=== PATIENT | female | born 1935 | race Caucasian/White ===

== ENCOUNTER → 2016-10-15 | Outpatient (CLI) | payer MEDICARE, OTHER ==
[~2016-10-15] MED LIST: ALL220TA PO; ASPI81CH CHEW; ASPI81TA82 PO; CEPH750C PO; D 10CHW PO; D31000CA PO; DICL75 PO; DOXY100C PO; FISH100020 PO; HYDR-3533 PO; HYDR12.56 PO; HYDR12.57 PO; LACTTAB8 PO; LEVO.1 PO; LISI-363 PO; MULT1TAB84 PO; OCUVTAB4 PO; OMEGCAP29 PO; PANT20 PO
[2016-10-15 13:12] LABS: HEMATOCRIT 43.4 % (35.0-46.0); MEAN CELL VOLUME 92.3 FL (80.0-100.0); MEAN CORPUSCULAR HEMOGLOBIN 30.9 PG (27.0-34.0); MEAN CORPUSCULAR HGB CONC 33.5 % (32.0-36.0); PLATELET COUNT 172 TH/MM3 (150-450); RED CELL DISTRIBUTION WIDTH 13.7 % (11.6-17.2); REVIEW FLAG FINAL
[2016-10-15 13:34] LABS: ALKALINE PHOSPHATASE 65 U/L (45-117); ALT (GPT) 17 U/L (10-53); ANION GAP 5 MEQ/L (5-15); AST (GOT) 16 U/L (15-37); BICARBONATE 32.1 MEQ/L (21.0-32.0); BLOOD UREA NITROGEN 29 MG/DL (7-18); CHLORIDE 105 MEQ/L (98-107); GLOMERULAR FILTRATION RATE 50 ML/MIN (>89); GLUCOSE,FASTING 81 MG/DL (74-99); HDL CHOLESTEROL 58.5 MG/DL (40.0-60.0); LDL CHOLESTEROL 96 MG/DL (0-99); LDL CHOLESTEROL DIRECT 113 MG/DL (0-99); POTASSIUM 4.1 MEQ/L (3.5-5.1); SODIUM (NA) 142 MEQ/L (136-145); TOTAL BILIRUBIN ADULT 1.6 MG/DL (0.2-1.0)
== END ==
LOC: PLAB 08:50
PROVIDERS: ATTEND Internal Medicine
DX: E03.9 Hypothyroidism, unspecified (principal); I10 Essential (primary) hypertension; E78.5 Hyperlipidemia, unspecified
CPT/HCPCS: 36415; 80053; 80061; 83721; 85027

== ENCOUNTER 2017-01-15 06:49 | Inpatient (IN) | payer MEDICARE, OTHER ==
[2017-01-15] VITALS (10 sets, daily range): BP systolic 100–148; BP diastolic 52–96; PULSE 80–120; RESP 16–20; TEMP 98.1–100.1; O2SAT 93–98
[~2017-01-15] VITALS: Ht 162.6 cm; Wt 82.6 kg
[~2017-01-15 06:49] MED LIST changes: -ASPI81CH CHEW; -CEPH750C PO; -D 10CHW PO; -DOXY100C PO; -HYDR12.57 PO; -LACTTAB8 PO; -MULT1TAB84 PO; -OMEGCAP29 PO
[2017-01-15] MEDS ORDERED: SODIUM CHLOR 0.9% 1000 ML INJ 1,000 ML IV ONE ×2 (07:21→10:30)
--- NOTE | 2017-01-15 07:21 | PD ---
HPI Chief Complaint: General Weakness Time Seen by Provider: 07:13 Travel History International Travel<30 days: No Contact w/Intl Traveler<30days: No History of Present Illness HPI The patient's 81 years old. She arrives by private auto from home with her granddaughter. The patient has been in her normal state of health and normal routine for the past several days or so. This morning she woke up at 3 AM feeling very cold. She was unable to get warm despite using blankets and various clothes. She began to shake. She called her granddaughter at that point. Granddaughter reports rigorous on scene and was concerned the patient might start seizing. Both no urinary frequency. The patient denies dysuria. At about same time the patient began vomiting and foamy green emesis. She's had no chest pain or shortness of breath. She denies abdominal pain. She notes a strong family history of coronary artery disease however has none herself. PFSH Past Medical History Autoimmune Disease: Yes (POLUPS) Diminished Hearing: No Hypertension: Yes Respiratory: Yes (NODULES ON LUNGS) Immunizations Current: Yes Thyroid Disease: Yes Tetanus Vaccination: Unknown Influenza Vaccination: Yes Menopausal: Yes Past Surgical History Cholecystectomy: Yes Hysterectomy: Yes Social History Alcohol Use: No Tobacco Use: No Substance Use: No Allergies-Medications (Allergen,Severity, Reaction): Coded Allergies: Shellfish (Verified Allergy, Severe, respirtory distress, 10/09/14) Penicillin (Verified Adverse Reaction, Mild, nausea, 10/09/14) Reported Meds & Prescriptions Reported Meds & Active Scripts Active Reported D 1000 (Cholecalciferol) 1,000 Unit Chew 1,000 PO DAILY Multivitamin Adults (Multiple Vitamins W/ Minerals) 1 Tab 1 Tab PO DAILY [facility] ([facility] 3 Fatty Ijctd-Blndtb-Iofcgwhbvo) 250-2.5-0.5 Mg Cap 1 Cap PO DAILY Synthroid (Levothyroxine Sodium) 100 Mcg Tab 100 Mcg PO DAILY Hydrochlorothiazide Unknown Strength Cap Unknown Dose PO DAILY Aspirin 81 Mg Chew 81 Mg CHEW DAILY Review of Systems Except as stated in HPI: all other systems reviewed are Neg General / Constitutional: Positive: Chills Gastrointestinal: Positive: Nausea, Vomiting, No: Abdominal Pain Genitourinary: Positive: Frequency Physical Exam Narrative GENERAL: 81 yo F, WNWD, pleasant SKIN: Warm and dry. HEAD: Atraumatic. Normocephalic. EYES: Pupils equal and round. No scleral icterus. No injection or drainage. ENT: No nasal bleeding or discharge. Mucous membranes pink and moist. NECK: Trachea midline. No JVD. CARDIOVASCULAR: Tachycardia. Regular rhythm. RESPIRATORY: No accessory muscle use. Clear to auscultation. Breath sounds equal bilaterally. GASTROINTESTINAL: Soft. No focus of tenderness. MUSCULOSKELETAL: Extremities without clubbing, cyanosis, or edema. No obvious deformities. NEUROLOGICAL: Awake and alert. No obvious cranial nerve deficits. Motor grossly within normal limits. Five out of 5 muscle strength in the arms and legs. Normal speech. PSYCHIATRIC: Appropriate mood and affect; insight and judgment normal. Data Data Last Documented VS Vital Signs Date Time Temp Pulse Resp B/P Pulse Ox O2 Delivery O2 Flow Rate FiO2 01/15/17 08:00 82 17 139/72 97 Nasal Cannula 2 01/15/17 06:52 99.6 Vs reviewed Orders Electrocardiogram (01/15/17 ) Complete Blood Count With Diff (01/15/17 07:21) Comprehensive Metabolic Panel (01/15/17 07:21) Lactic Acid Sepsis Protocol (01/15/17 07:21) Magnesium (Mg) (01/15/17 07:21) Ckmb (Isoenzyme) Profile (01/15/17 07:21) Troponin I (01/15/17 07:21) Urinalysis - C+S If Indicated (01/15/17 07:21) Influenzae A/B Antigen (01/15/17 07:21) Blood Culture (01/15/17 07:21) Chest, Single Ap (01/15/17 07:21) Ecg Monitoring (01/15/17 07:21) Iv Access Insert/Monitor (01/15/17 07:21) Cath For Specimen (01/15/17 07:21) Oximetry (01/15/17 07:21) Oxygen Administration (01/15/17 07:21) Ondansetron Inj (Zofran Inj) (01/15/17 07:30) Sodium Chlor 0.9% 1000 Ml Inj (Ns 1000 M (01/15/17 07:21) CKMB (01/15/17 07:48) CKMB% (01/15/17 07:48) Ceftriaxone Inj (Rocephin Inj) (01/15/17 09:00) Azithromycin (Zithromax) (01/15/17 09:00) Admit Order (Ed Use Only) (01/15/17 09:58) Labs Laboratory Tests Test 01/15/17 01/15/17 07:45 07:48 Urine Color YELLOW Urine Turbidity CLEAR Urine pH 6.0 Urine Specific [place] 1.018 Urine Protein TRACE mg/dL Urine Glucose (UA) NEG mg/dL Urine Ketones NEG mg/dL Urine Occult Blood MOD Urine Nitrite NEG Urine Bilirubin NEG Urine Urobilinogen 4.0 MG/DL Urine Leukocyte Esterase NEG Urine RBC 10 /hpf Urine WBC 1 /hpf Urine Squamous Epithelial <1 /hpf Cells Urine Mucus FEW /lpf Microscopic Urinalysis Comment CATH-CULT NOT IND White Blood Count 13.0 TH/MM3 Red Blood Count 4.68 MIL/MM3 Hemoglobin 14.6 GM/DL Hematocrit 43.2 % Mean Corpuscular Volume 92.4 FL Mean Corpuscular Hemoglobin 31.2 PG Mean Corpuscular Hemoglobin 33.8 % Concent Red Cell Distribution Width 13.9 % Platelet Count 172 TH/MM3 Mean Platelet Volume 9.0 FL Neutrophils (%) (Auto) 85.6 % Lymphocytes (%) (Auto) 8.7 % Monocytes (%) (Auto) 4.9 % Eosinophils (%) (Auto) 0.5 % Basophils (%) (Auto) 0.3 % Neutrophils # (Auto) 11.2 TH/MM3 Lymphocytes # (Auto) 1.1 TH/MM3 Monocytes # (Auto) 0.6 TH/MM3 Eosinophils # (Auto) 0.1 TH/MM3 Basophils # (Auto) 0.0 TH/MM3 CBC Comment DIFF FINAL Differential Comment Sodium Level 138 MEQ/L Potassium Level 4.5 MEQ/L Chloride Level 105 MEQ/L Carbon Dioxide Level 22.9 MEQ/L Anion Gap 10 MEQ/L Blood Urea Nitrogen 26 MG/DL Creatinine 1.11 MG/DL Estimat Glomerular Filtration 47 ML/MIN Rate Random Glucose 112 MG/DL Lactic Acid Level 2.3 mmol/L Calcium Level 9.1 MG/DL Magnesium Level 1.6 MG/DL Total Bilirubin 2.0 MG/DL Aspartate Amino Transf 42 U/L (AST/SGOT) Alanine Aminotransferase 25 U/L (ALT/SGPT) Alkaline Phosphatase 69 U/L Total Creatine Kinase 107 U/L Creatine Kinase MB 1.1 NG/ML Troponin I LESS THAN 0.02 NG/ML Total Protein 6.6 GM/DL Albumin 3.6 GM/DL MDM Medical Decision Making Medical Screen Exam Complete: Yes Emergency Medical Condition: Yes Medical Record Reviewed: Yes Differential Diagnosis Constipation, Gastritis, Acute Cholecystitis, Biliary Colic, Pancreatitis, MENDEZ , Hepatitis, Bowel Obstruction, Cystitis, Mesenteric Ischemia, AAA, Appendicitis , Renal Stone/Hydronephrosis, GERD, perforated viscous Narrative Course CBC & BMP Diagram 01/15/17 07:48 Lactic acid 2.3 Total bilirubin 2.0 AST 42 Troponin 0.02 EKG: Sinus tachycardia rate of 118 normal axis and intervals Patient arrives after rigors this morning with tachycardia. She happens to meeting the sepsis criteria numerically however the exact etiology is unclear at this point. Her abdomen is soft and nontender. Urinalysis is not consistent with UTI. Patient may potentially have pneumonia. Influenza assay could be a false-negative. Patient will be admitted for further workup and for antibiotics. Discussed with Dr. Mathis. Sepsis Criteria SIRS Criteria (2 or more): Heart rate over 90, WBC > 52769, < 4000 or > 10% bands Sepsis Criteria (SIRS+source): Infect source susp/known Diagnosis Primary Impression: Sepsis Qualified Code: A41.9 - Sepsis, due to unspecified organism Admitting Information Admitting Physician Requests: Admit Maurilio Bateman MD Jan 15, 2017 07:21
[2017-01-15] MEDS ORDERED: ONDANSETRON HCL 4 MG/2 ML VIAL IV ONE (07:30)
--- NOTE | 2017-01-15 07:59 | RADRPT ---
EXAM DATE/TIME: 01/15/2017 07:30 [facility] COMPARISON: CT LUMBAR SPINE W/O CONTRAST, September 27, 2014, 17:33. SPINE LUMBAR LTD (AP & LAT), February 28, 2015, 1 5:55. CHEST SINGLE AP, October 09, 2014, 13:19. INDICATIONS : Fever, short of breath, nausea, vomiting, convulsing, low blood pressure MEDICAL HISTORY : lung nodules SURGICAL HISTORY : None. ENCOUNTER: Initial ACUITY: 1 day PAIN SCORE: 0/10 LOCATION: Bilateral chest FINDINGS: Single AP view of the chest. The lungs are clear. Cardiomediastinal silhouette within normal limits. No evidence of pleural effusion or pneumothorax. Likely hiatal hernia noted. CONCLUSION: No acute cardiopulmonary disease identified. Venancio Tate MD on January 15, 2017 at 7:56 Board Certified Radiologist. This report was verified electronically.
[2017-01-15 08:03] LABS: AUTOMATED NEUTROPHIL # 11.2 TH/MM3 (1.8-7.7); BASOPHIL % 0.3 % (0.0-2.0); EOSINOPHIL # 0.1 TH/MM3 (0-0.4); EOSINOPHIL % 0.5 % (0.0-4.0); HEMATOCRIT 43.2 % (35.0-46.0); HEMO FLAGS DIFF FINAL; LYMPH % 8.7 % (9.0-44.0); LYMPHOCYTE # 1.1 TH/MM3 (1.0-4.8); MEAN CELL VOLUME 92.4 FL (80.0-100.0); MEAN CORPUSCULAR HEMOGLOBIN 31.2 PG (27.0-34.0); MEAN CORPUSCULAR HGB CONC 33.8 % (32.0-36.0); MONO % 4.9 % (0.0-8.0); NEUT % 85.6 % (16.0-70.0); PLATELET COUNT 172 TH/MM3 (150-450); RED BLOOD COUNT 4.68 MIL/MM3 (4.00-5.30); RED CELL DISTRIBUTION WIDTH 13.9 % (11.6-17.2)
[2017-01-15 08:09] LABS: BLOOD, URINE MOD (NEG); GLUCOSE,URINE NEG (NEG); KETONE, URINE NEG (NEG); MUCUS URINE FEW /lpf (OCC); NITRITE,URINE NEG (NEG); SQUAMOUS EPITHELIAL CELL URINE <1 /hpf (0-5); URINE COLOR YELLOW (YELLW/STRAW)
[2017-01-15 08:10] LABS: COMMENT (UR) CATH-CULT NOT IND; CULTURE IF INDICATED CATH CULTURE NOT IND
[2017-01-15 08:35] LABS: ALKALINE PHOSPHATASE 69 U/L (45-117); ALT (GPT) 25 U/L (10-53); ANION GAP 10 MEQ/L (5-15); AST (GOT) 42 U/L (15-37); BICARBONATE 22.9 MEQ/L (21.0-32.0); BLOOD UREA NITROGEN 26 MG/DL (7-18); CHLORIDE 105 MEQ/L (98-107); CREATINE KINASE 107 U/L (26-192); GLOMERULAR FILTRATION RATE 47 ML/MIN (>89); MAGNESIUM 1.6 MG/DL (1.5-2.5); POTASSIUM 4.5 MEQ/L (3.5-5.1); SODIUM (NA) 138 MEQ/L (136-145)
[2017-01-15 08:48] LABS: CKMB 1.1 NG/ML (0.5-3.6)
[2017-01-15] MEDS ORDERED: AZITHROMYCIN 250 MG TAB PO ONE (09:00)
[2017-01-15] MEDS ORDERED: cefTRIAXone INJ 1,000 MG in SODIUM CHLORIDE 0.9% INJ 100 ML IV ONE (09:00)
[2017-01-15 09:56] LABS: LACTIC ACID GHOST NOT REPORTABLE
[2017-01-15] MEDS ORDERED: ASPI81CH CHEW (10:08)
[2017-01-15] MEDS ORDERED: LEVO.1 PO (10:08)
[2017-01-15] MEDS ORDERED: MULT1TAB84 PO (10:08)
[2017-01-15] MEDS ORDERED: D 10CHW PO (10:08)
[2017-01-15] MEDS ORDERED: OMEGCAP29 PO (10:08)
[2017-01-15] MEDS ORDERED: HYDR12.57 PO (10:08)
--- NOTE | 2017-01-15 10:58 | RADRPT ---
EXAM DATE/TIME: 01/15/2017 10:56 [facility] COMPARISON: CHEST SINGLE AP, January 15, 2017, 7:30. INDICATIONS : Fever, short of breath, evaluate sepsis and possible pneumonia MEDICAL HISTORY : lung nodules SURGICAL HISTORY : Kyphoplasty. ENCOUNTER: Subsequent ACUITY: 1 day PAIN SCORE: 0/10 LOCATION: Bilateral chest FINDINGS: The heart is normal in size. There mild chronic appearing interstitial changes. The visualized bony s tructures demonstrate degenerative change but are otherwise intact. CONCLUSION: 1. Cardiomegaly with chronic interstitial changes. Stable compared to previous. Maurilio Painter MD on January 15, 2017 at 10:56 Board Certified Radiologist. This report was verified electronically.
[2017-01-15] MEDS ORDERED: SODIUM CHLORIDE 0.9% FLUSH 10 ML FLUSH IV FLUSH PRN (12:15)
[2017-01-15] MEDS ORDERED: ACETAMINOPHEN 325 MG TAB PO PRN (12:15)
[2017-01-15] MEDS: SODIUM CHLOR 0.45% 1000 ML INJ 1,000 ML IV SCH (12:38)
[2017-01-15] MEDS: HEPARIN SODIUM - SQ 10,000 UNITS/ML VIAL SQ SCH (14:38)
--- NOTE | 2017-01-15 18:58 | HHI.HP ---
cc: Ganga Wagner MD HPI Service [facility] Primary Care Physician Ganga Wagner MD Admission Diagnosis Sepsis (Poss PNA) Diagnoses: Chief Complaint: " I felt cold", chills Travel History International Travel<30 Days: No Contact w/Intl Traveler <30 Da: No Traveled to Known Affected Are: No Sepsis Criteria SIRS Criteria (2 or more): Heart rate over 90, WBC > 45532, < 4000 or > 10% bands Sepsis Criteria (SIRS+source): Infect source susp/known Severe Sepsis (+one): Organ Dysfunction Criteria Outcome: Meets sepsis criteria History of Present Illness SSN 81-year-old female with past medical history of hypertension, hypothyroidism and arthritis who presents to [facility] complaining of not feeling well. The patient states that today she will Feel cold cut up from the bed and tried to cover herself with extra clothes and blankets however she then started shaking and having chills. The patient states that she was waiting for her granddaughter to pick her up who is a nurse for the hospital. The patient otherwise denies any cough denies any fevers, denies any chest pain , denies dysuria. She states that approximately 2 days ago she bumped her right leg on the corner of car door sustaining a small injury, however denies right leg pain. The patient states that she had some nausea and vomiting 1 when she got to the hospital. At the moment of interview the patient is asymptomatic, denies chest pain short of breath, cough. Review of Systems As per history of present illness, other systems reviewed by me and negative Past Family Social History Past Medical History 1. Hypertension. 2. Arthritis. 3. Hypothyroidism Past Surgical History 1. Hip surgery after being attacked by a dog. 2. Spine surgery for separate events of vertebral fractures in 2011 and 2014. 3. Total abdominal hysterectomy with bilateral salpingo-oophorectomy. 4. Gangrenous cyst removal on the right arm. 5. Cholecystectomy. 6. Left foot surgery for hammertoes. Reported Medications Reported Meds & Active Scripts Active Reported D 1000 (Cholecalciferol) 1,000 Unit Chew 1,000 PO DAILY Multivitamin Adults (Multiple Vitamins W/ Minerals) 1 Tab 1 Tab PO DAILY [facility] ([place] 3 Fatty Wsonf-Jiilte-Fsdjsvesfn) 250-2.5-0.5 Mg Cap 1 Cap PO DAILY Synthroid (Levothyroxine Sodium) 100 Mcg Tab 100 Mcg PO DAILY Hydrochlorothiazide Unknown Strength Cap Unknown Dose PO DAILY Aspirin 81 Mg Chew 81 Mg CHEW DAILY Allergies: Coded Allergies: Shellfish (Verified Allergy, Severe, respirtory distress, 10/09/14) Penicillin (Verified Adverse Reaction, Mild, nausea, 10/09/14) Active Ordered Medications Current Medications Medications (Trade) Dose Ordered Sig/Gladys Route Start Time Stop Time Status Last Admin (10/12 NS 1000 ml Inj) 1,000 ml @ 75 mls/hr [id number] IV 01/15/17 12:12 01/15/17 12:38 (NS Flush) 2 ml UNSCH PRN IV FLUSH 01/15/17 12:15 (NS Flush) 2 ml BID IV FLUSH 01/15/17 21:00 (Tylenol) 650 mg Q4H PRN PO 01/15/17 12:15 Heparin Sodium (Porcine) 5000 units 5,000 units Q12H SQ 01/15/17 13:00 01/15/17 14:38 (Rocephin Inj/NS Inj) 100 ml @ 200 mls/hr Q24H IV 01/16/17 09:00 (Zithromax) 500 mg DAILY PO 01/16/17 09:00 Family History Patient has extensive family history of aortic aneurysm on her father and her sister. The patient's father of bone cancer and committed suicide at the end of this. Patient's brother from bowel cancer. Patient has a daughter who is and at age 37, heart attack. Patient's oldest son from sudden at age 60. Social History Patient denies drinking alcohol. Denies ever smoking. Denies illicit drug use. The patient is and 4 times. The patient lives by herself. Physical Exam Vital Signs Vital Signs Date Time Temp Pulse Resp B/P Pulse Ox O2 Delivery O2 Flow Rate FiO2 01/15/17 16:00 99.4 85 18 109/52 96 01/15/17 14:00 98.1 95 18 121/75 95 01/15/17 11:00 98 18 108/70 97 Room Air 01/15/17 10:00 96 18 100/59 98 Room Air 01/15/17 09:00 98 16 115/74 98 Room Air 01/15/17 08:00 82 17 139/72 97 Nasal Cannula 2 01/15/17 07:33 94 Nasal Cannula 2 01/15/17 07:33 18 93 Room Air 01/15/17 07:12 119 16 93 Room Air 01/15/17 07:09 115 18 130/82 94 Room Air 01/15/17 06:52 99.6 120 16 148/96 95 Room Air Physical Exam GENERAL: This is a well-nourished, well-developed patient, in no apparent distress. SKIN: No rashes, ecchymoses or lesions. Cool and dry. HEAD: Atraumatic. Normocephalic. No temporal or scalp tenderness. EYES: Pupils equal round and reactive. Extraocular motions intact. No scleral icterus. No injection or drainage. ENT: Nose without bleeding, purulent drainage or septal hematoma. Throat without erythema, tonsillar hypertrophy or exudate. Uvula midline. Airway patent. NECK: Trachea midline. No JVD or lymphadenopathy. Supple, nontender, no meningeal signs. CARDIOVASCULAR: Regular rate and rhythm without murmurs, gallops, or rubs. RESPIRATORY: Clear to auscultation. Breath sounds equal bilaterally. No wheezes , rales, or rhonchi. GASTROINTESTINAL: Abdomen soft, non-tender, nondistended. No hepato-splenomegaly , or palpable masses. No guarding. MUSCULOSKELETAL: Extremities without clubbing, cyanosis, or edema. No joint tenderness, effusion. . No calf tenderness. Negative Homans sign bilaterally. Right lower extremity shows a skin tear which seems to be healing with surrounding erythema and warmth. Also Right lower extremity seems to be swollen in comparison to the right extremity NEUROLOGICAL: Awake and alert. Cranial nerves II through XII intact. Motor and sensory grossly within normal limits. Five out of 5 muscle strength in all muscle groups. Normal speech. Laboratory Laboratory Tests Test 01/15/17 01/15/17 01/15/17 07:45 07:48 10:15 Urine Color YELLOW Urine Turbidity CLEAR Urine pH 6.0 Urine Specific [place] 1.018 Urine Protein TRACE Urine Glucose (UA) NEG Urine Ketones NEG Urine Occult Blood MOD Urine Nitrite NEG Urine Bilirubin NEG Urine Urobilinogen 4.0 Urine Leukocyte Esterase NEG Urine RBC 10 Urine WBC 1 Urine Squamous Epithelial <1 Cells Urine Mucus FEW Microscopic Urinalysis Comment CATH-CULT NOT IND White Blood Count 13.0 Red Blood Count 4.68 Hemoglobin 14.6 Hematocrit 43.2 Mean Corpuscular Volume 92.4 Mean Corpuscular Hemoglobin 31.2 Mean Corpuscular Hemoglobin 33.8 Concent Red Cell Distribution Width 13.9 Platelet Count 172 Mean Platelet Volume 9.0 Neutrophils (%) (Auto) 85.6 Lymphocytes (%) (Auto) 8.7 Monocytes (%) (Auto) 4.9 Eosinophils (%) (Auto) 0.5 Basophils (%) (Auto) 0.3 Neutrophils # (Auto) 11.2 Lymphocytes # (Auto) 1.1 Monocytes # (Auto) 0.6 Eosinophils # (Auto) 0.1 Basophils # (Auto) 0.0 CBC Comment DIFF FINAL Differential Comment Sodium Level 138 Potassium Level 4.5 Chloride Level 105 Carbon Dioxide Level 22.9 Anion Gap 10 Blood Urea Nitrogen 26 Creatinine 1.11 Estimat Glomerular Filtration 47 Rate Random Glucose 112 Lactic Acid Level 2.3 0.9 Calcium Level 9.1 Magnesium Level 1.6 Total Bilirubin 2.0 Aspartate Amino Transf 42 (AST/SGOT) Alanine Aminotransferase 25 (ALT/SGPT) Alkaline Phosphatase 69 Total Creatine Kinase 107 Creatine Kinase MB 1.1 Troponin I LESS THAN 0.02 Total Protein 6.6 Albumin 3.6 Date/Time Procedure Status Source Growth 01/15/17 07:50 Aerobic Blood Culture Received Blood Peripheral Pending 01/15/17 07:50 Anaerobic Blood Culture Received Blood Peripheral Pending 01/15/17 07:45 Influenza Types A,B Antigen (BRO) - Final Complete Nasal Aspirate NEGATIVE FOR FLU A AND B ANTIGEN.... Result Diagram: 01/15/1748 01/15/17747 Imaging Last Impressions Chest X-Ray 01/15/17720 Signed Impressions: Service Date/Time: Sunday, January 15, 2017 07:30 - CONCLUSION: No acute cardiopulmonary disease identified. Venancio Tate MD Reviewed by me Septic Shock Reassessment Heart: Regular rate and rhythm Lungs: Clear Skin: Warm Peripheral Pulses: Bounding Right Radial Bounding Left Radial Bounding Right Dorsalis Pedis Bounding Left Dorsalis Pedis Capillary Refill: <2 seconds Assessment and Plan Problem List: (1) Sepsis ICD Code: A41.9 Status: Acute Plan: Admit the patient to the medical floor. Continue IV Rocephin Continue IV fluids Continue to monitor vital signs (2) Cellulitis of right lower extremity ICD Code: L03.115 Status: Acute Plan: As above. Check venous Doppler of right lower extremity to r/o associated DVT. (3) Hypothyroidism ICD Code: E03.9 Status: Chronic Plan: Continue levothyroxine. Check TSH. (4) HTN (hypertension) ICD Code: I10 Status: Acute Plan: I will hold lisinopril and hydrochlorothiazide given acute kidney injury and decreased GFR. We'll place on clonidine as needed. (5) HANNAH (acute kidney injury) ICD Code: N17.9 Status: Acute Plan: Likely prerenal azotemia from sepsis and dehydration. Assessment and Plan GI prophylaxis: PPI. DVT prophylaxis: SCDs, heparin subcutaneously. Consult physical therapy for evaluation. Discussed Condition With Patient, patient's daughter, ED physician Physician Certification 2 Midnight Certification Type: Admission for Inpatient Services Order for Inpatient Services The services are ordered in accordance with Medicare regulations or non- Medicare payer requirements, as applicable. In the case of services not specified as inpatient-only, they are appropriately provided as inpatient services in accordance with the 2-midnight benchmark. Estimated LOS (days): 3 days is the estimated time the patient will need to remain in the hospital, assuming treatment plan goals are met and no additional complications. Post-Hospital Plan: Not yet determined Problem Qualifiers (1) Sepsis: Qualified Code: A41.9 - Sepsis, due to unspecified organism (2) HTN (hypertension): Qualified Code: I10 - Essential hypertension Christopher Ervin MD Jan 15, 2017 18:58
[2017-01-15] MEDS: SODIUM CHLORIDE 0.9% FLUSH 10 ML FLUSH IV FLUSH SCH (21:00)
--- NOTE | 2017-01-15 22:10 | EKG ---
Date Performed: 01/15/2017 Time Performed: 07:16:44 PTAGE: 81 years EKG: SINUS TACHYCARDIA POSSIBLE ANTERIOR MYOCARDIAL INFARCTION Prolonged corrected QT interval. ABNORMAL RHYTHM ECG PREVIOUS TRACING : 10/09/2014 12.46 DOCTOR: Malachi Monge Interpretating Date/Time 01/15/2017 22:08:41
[2017-01-16] VITALS (8 sets, daily range): BP systolic 104–161; BP diastolic 61–84; PULSE 40–77; RESP 18–20; TEMP 98.1–98.7; O2SAT 66–98
[2017-01-16] MEDS: HEPARIN SODIUM - SQ 10,000 UNITS/ML VIAL SQ SCH ×2 (00:47→12:34)
[2017-01-16] MEDS: SODIUM CHLOR 0.45% 1000 ML INJ 1,000 ML IV SCH ×3 (01:32→23:25)
[2017-01-16 08:09] LABS: AUTOMATED NEUTROPHIL # 9.7 TH/MM3 (1.8-7.7); BASOPHIL % 0.3 % (0.0-2.0); EOSINOPHIL % 0.1 % (0.0-4.0); HEMATOCRIT 37.7 % (35.0-46.0); HEMO FLAGS DIFF FINAL; LYMPH % 12.7 % (9.0-44.0); LYMPHOCYTE # 1.5 TH/MM3 (1.0-4.8); MEAN CELL VOLUME 92.5 FL (80.0-100.0); MEAN CORPUSCULAR HEMOGLOBIN 30.5 PG (27.0-34.0); MONO % 6.6 % (0.0-8.0); NEUT % 80.3 % (16.0-70.0); PLATELET COUNT 143 TH/MM3 (150-450); RED BLOOD COUNT 4.08 MIL/MM3 (4.00-5.30); RED CELL DISTRIBUTION WIDTH 14.3 % (11.6-17.2); WHITE BLOOD COUNT 12.1 TH/MM3 (4.0-11.0)
[2017-01-16 08:37] LABS: ALKALINE PHOSPHATASE 59 U/L (45-117); ALT (GPT) 33 U/L (10-53); ANION GAP 8 MEQ/L (5-15); AST (GOT) 30 U/L (15-37); BICARBONATE 26.6 MEQ/L (21.0-32.0); BLOOD UREA NITROGEN 22 MG/DL (7-18); CHLORIDE 106 MEQ/L (98-107); GLOMERULAR FILTRATION RATE 46 ML/MIN (>89); POTASSIUM 3.7 MEQ/L (3.5-5.1); SODIUM (NA) 141 MEQ/L (136-145); TOTAL BILIRUBIN ADULT 1.9 MG/DL (0.2-1.0)
[2017-01-16] MEDS: SODIUM CHLORIDE 0.9% FLUSH 10 ML FLUSH IV FLUSH SCH ×2 (08:51→21:00)
[2017-01-16] MEDS ORDERED: AZITHROMYCIN 250 MG TAB PO SCH (09:00)
[2017-01-16] MEDS ORDERED: cefTRIAXone INJ 1,000 MG in SODIUM CHLORIDE 0.9% INJ 100 ML IV SCH (09:00)
[2017-01-16] MEDS ORDERED: Vancomycin Consult Pharmacy 1 EA OTHER SCH (09:15)
[2017-01-16] MEDS ORDERED: VANCOMYCIN INJ 1,000 MG in SODIUM CHLOR 0.9% 250 ML INJ 250 ML IV SCH (09:15)
[2017-01-16 12:09] LABS: INDIRECT BILIRUBIN 1.1 MG/DL (0.0-0.8); TOTAL BILIRUBIN ADULT 1.4 MG/DL (0.2-1.0)
[2017-01-16] MEDS: VANCOMYCIN 1,000 MG/NS 250 ML IV SCH ×2 (12:34)
--- NOTE | 2017-01-16 15:22 | RADRPT ---
EXAM DATE/TIME: 01/16/2017 14:31 [facility] COMPARISON: No previous studies available for comparison. INDICATIONS : Right leg pain and redness. MEDICAL HISTORY : Hypertension. Thyroid disease. Skin cancer. SURGICAL HISTORY : Cholecystectomy. Hysterectomy. Right hip surgery. ENCOUNTER: Initial ACUITY: 1 day PAIN SCORE: 0/10 LOCATION: Right leg. TECHNIQUE: Venous ultrasound of the leg was performed from the inguinal ligament to the proximal calf. Real-rosalba e, color Doppler and spectral tracing, compression and augmentation techniques were used. FINDINGS: There is normal compressibility of the deep venous system from the inguinal region to the proximal ca lf. No echogenic clot is seen in the lumen of the common femoral, femoral, popliteal, and posterior tibial veins. There is a normal response of the venous system to proximal and distal augmentation an d respiration. CONCLUSION: No evidence of DVT. Jesús Constantino MD on January 16, 2017 at 15:20 Board Certified Radiologist. This report was verified electronically.
--- NOTE | 2017-01-16 17:08 | HHI.PR ---
Subjective Remarks Deferred entry, patient seen earlier at 11:40 AM. WBC trending down. Creatinine trending up Patient denies fevers or chills, states she feels better, denies right lower extremity pain. Patient had a low-grade fever with a MAXIMUM TEMPERATURE of 100.1. Bilirubin noted to be elevated. Objective Vitals Vital Signs Date Time Temp Pulse Resp B/P Pulse Ox O2 Delivery O2 Flow Rate FiO2 01/16/17 12:08 98.3 65 18 130/74 95 01/16/17 08:06 98.7 68 18 114/68 93 01/16/17 08:03 68 01/16/17 07:40 96 21 01/16/17 04:00 98.2 40 20 126/66 96 01/16/17 00:00 98.1 77 20 104/61 92 01/15/17 20:00 80 01/15/17 20:00 100.1 82 20 116/62 98 I/O 01/15/17 01/15/17 01/15/17 01/16/17 01/16/17 01/16/17 07:00 15:00 23:00 07:00 15:00 23:00 Intake Total 1003 ml 566 ml Balance 1003 ml 566 ml Intake Oral 360 ml 240 ml IV Total 643 ml 326 ml # Voids 2 2 2 Result Diagram: 01/16/17 0634 01/16/17 0634 Imaging Last Impressions Lower Extremity Ultrasound 01/16/17 0000 Signed Impressions: Service Date/Time: Monday, January 16, 2017 14:31 - CONCLUSION: No evidence of DVT. Jesús Constantino MD Chest X-Ray 01/15/17 0721 Signed Impressions: Service Date/Time: Sunday, January 15, 2017 07:30 - CONCLUSION: No acute cardiopulmonary disease identified. Venancio Tate MD Objective Remarks GENERAL: This is a well-nourished, well-developed patient, in no apparent distress. SKIN: No rashes, ecchymoses or lesions. Cool and dry. HEAD: Atraumatic. Normocephalic. No temporal or scalp tenderness. EYES: Pupils equal round and reactive. Extraocular motions intact. No scleral icterus. No injection or drainage. ENT: Nose without bleeding, purulent drainage or septal hematoma. Throat without erythema, tonsillar hypertrophy or exudate. Uvula midline. Airway patent. NECK: Trachea midline. No JVD or lymphadenopathy. Supple, nontender, no meningeal signs. CARDIOVASCULAR: Regular rate and rhythm without murmurs, gallops, or rubs. RESPIRATORY: Clear to auscultation. Breath sounds equal bilaterally. No wheezes , rales, or rhonchi. GASTROINTESTINAL: Abdomen soft, non-tender, nondistended. No hepato-splenomegaly , or palpable masses. No guarding. MUSCULOSKELETAL: Extremities without clubbing, cyanosis, or edema. No joint tenderness, effusion. . No calf tenderness. Negative Homans sign bilaterally. Right lower extremity shows a skin tear which seems to be healing with surrounding erythema and warmth. Also Right lower extremity seems to be swollen in comparison to the right extremity NEUROLOGICAL: Awake and alert. Cranial nerves II through XII intact. Motor and sensory grossly within normal limits. Five out of 5 muscle strength in all muscle groups. Normal speech. Medications and IVs Current Medications Medications (Trade) Dose Ordered Sig/Gladys Route Start Time Stop Time Status Last Admin (10/12 NS 1000 ml Inj) 1,000 ml @ 100 mls/hr Q10H IV 01/15/17 12:12 01/16/17 05:49 (NS Flush) 2 ml UNSCH PRN IV FLUSH 01/15/17 12:15 (NS Flush) 2 ml BID IV FLUSH 01/15/17 21:00 01/16/17 08:51 (Tylenol) 650 mg Q4H PRN PO 01/15/17 12:15 Heparin Sodium (Porcine) 5000 units 5,000 units Q12H SQ 01/15/17 13:00 01/16/17 12:34 Cefazolin Sodium 1000 mg/Sodium Chloride 100 ml @ 200 mls/hr Q8H IV 01/16/17 11:00 01/16/17 12:33 Pharmacy Profile Note 0 ml @ 0 mls/hr UNSCH OTHER 01/16/17 09:15 (Vancomycin Inj/ NS 250 ml Inj) 250 ml @ 250 mls/hr Q24H IV 01/16/17 12:00 01/16/17 12:34 Miscellaneous Information SPECIFIC LAB TO BE ENMA... ONCE ONCE .XX 01/19/17 11:45 01/19/17 11:46 Urinary Catheter: No Vascular Central Line Catheter: No A/P Problem List: (1) Sepsis ICD Code: A41.9 Status: Acute Plan: Patient was admitted to the medical floor. DC Rocephin, start cephalexin and IV vancomycin Continue IV fluids Continue to monitor vital signs Blood cultures negative 1. (2) Cellulitis of right lower extremity ICD Code: L03.115 Status: Acute Plan: As above. Lower extremity Doppler negative. Cellulitis seems to be improving, as erythema has improved. (3) Hypothyroidism ICD Code: E03.9 Status: Chronic Plan: Continue levothyroxine. Check TSH. (4) HTN (hypertension) ICD Code: I10 Status: Acute Plan: I will hold lisinopril and hydrochlorothiazide given acute kidney injury and decreased GFR. We'll place on clonidine as needed. 01/16 BP stable. Continue to hold lisinopril and hydrochlorothiazide. (5) HANNAH (acute kidney injury) ICD Code: N17.9 Status: Acute Plan: Likely prerenal azotemia from sepsis and dehydration. Creatinine stable at 1.1. Continue IV fluids. Check renal ultrasound. (6) Elevated lactic acid level ICD Code: R79.89 Status: Resolved Plan: Due to sepsis secondary to cellulitis. Lactic acid on admission 2.3, down to 0.9 after IV fluid administration. (7) Elevated bilirubin ICD Code: R17 Status: Acute Plan: Slated elevation of bilirubin. Total bilirubin 2.0, down to 1.9, down to 1.4. Direct bilirubin 0.3, indirect bilirubin 1.1. Likely secondary to Gilbert's syndrome since the patient states that her bilirubin gets elevated under stress. Problem Qualifiers (1) Sepsis: Qualified Code: A41.9 - Sepsis, due to unspecified organism (2) HTN (hypertension): Qualified Code: I10 - Essential hypertension Christopher Ervin MD Jan 16, 2017 17:08
--- NOTE | 2017-01-16 21:11 | RADRPT ---
EXAM DATE/TIME: 01/16/2017 17:26 [facility] COMPARISON: No previous studies available for comparison. INDICATIONS : Increased lab values. MEDICAL HISTORY : Hypertension. Thyroid disease. Skin cancer. SURGICAL HISTORY : Cholecystectomy. Hysterectomy. Right hip surgery. ENCOUNTER: Initial ACUITY: 1 day PAIN SCORE: 0/10 LOCATION: Bilateral abdomen. MEASUREMENTS: LIVER: 15.5 cm length COMMON DUCT: 8 mm RIGHT KIDNEY: 9.8 x 4.9 x 4.3 cm LEFT KIDNEY: 9.2 x 5.1 x 5.2 cm SPLEEN: 11.0 cm length AORTA: 2.5cm maximal FINDINGS: LIVER: Normal echotexture without focal lesion or ductal dilatation. The portal system is patent. There is no ascites. COMMON DUCT: No intraluminal mass or stone visualized. GALLBLADDER: Surgically removed. PANCREAS: The visualized portions are within normal limits. RIGHT KIDNEY: No hydronephrosis, stone or mass. There is a cyst along the lower pole measuring 2.8 cm. LEFT KIDNEY: No hydronephrosis, stone or mass. There is a cyst along the lower pulmonary 1.4 cm. SPLEEN: No focal lesion. AORTA: Non aneurysmal. IVC: Within normal limits. CONCLUSION: 1. Status post cholecystectomy. No definite biliary tract obstruction 2. Bilateral benign-appearing renal cysts. Jesús Constantino MD on January 16, 2017 at 21:08 Board Certified Radiologist. This report was verified electronically.
[2017-01-17] VITALS: BP 147/88; PULSE 68; RESP 20; TEMP 98.7; O2SAT 97
[2017-01-17] MEDS: HEPARIN SODIUM - SQ 10,000 UNITS/ML VIAL SQ SCH ×2 (01:00→11:22)
[2017-01-17 04:00] VITALS: BP 154/72; PULSE 68; RESP 20; TEMP 98; O2SAT 98
[2017-01-17 07:36] LABS: AUTOMATED NEUTROPHIL # 4.5 TH/MM3 (1.8-7.7); BASOPHIL % 0.5 % (0.0-2.0); EOSINOPHIL # 0.1 TH/MM3 (0-0.4); EOSINOPHIL % 1.5 % (0.0-4.0); HEMATOCRIT 33.7 % (35.0-46.0); HEMO FLAGS DIFF FINAL; LYMPH % 21.9 % (9.0-44.0); LYMPHOCYTE # 1.5 TH/MM3 (1.0-4.8); MEAN CELL VOLUME 91.3 FL (80.0-100.0); MEAN CORPUSCULAR HEMOGLOBIN 31.6 PG (27.0-34.0); MEAN CORPUSCULAR HGB CONC 34.6 % (32.0-36.0); MONO % 11.3 % (0.0-8.0); NEUT % 64.8 % (16.0-70.0); PLATELET COUNT 138 TH/MM3 (150-450); RED BLOOD COUNT 3.69 MIL/MM3 (4.00-5.30); RED CELL DISTRIBUTION WIDTH 14.4 % (11.6-17.2)
[2017-01-17 07:55] LABS: BICARBONATE 25.7 MEQ/L (21.0-32.0); INDIRECT BILIRUBIN 0.8 MG/DL (0.0-0.8); MAGNESIUM 1.7 MG/DL (1.5-2.5); POTASSIUM 3.6 MEQ/L (3.5-5.1)
[2017-01-17 07:59] VITALS: O2SAT 99
[2017-01-17 08:00] VITALS: BP 176/89; PULSE 74; RESP 18; TEMP 98.1; O2SAT 97
[2017-01-17] MEDS: SODIUM CHLORIDE 0.9% FLUSH 10 ML FLUSH IV FLUSH SCH (08:10)
[2017-01-17] MEDS: SODIUM CHLOR 0.45% 1000 ML INJ 1,000 ML IV SCH (08:11)
[2017-01-17] MEDS ORDERED: cloNIDine HCL 0.1 MG TAB PO ONE (08:30)
[2017-01-17] MEDS ORDERED: HYDROCHLOROTHIAZIDE 25 MG TAB PO SCH (09:00)
[2017-01-17] MEDS: VANCOMYCIN 1,000 MG/NS 250 ML IV SCH ×2 (11:22)
[2017-01-17 12:00] VITALS: BP 113/67; PULSE 73; RESP 18; TEMP 98.1; O2SAT 96
[2017-01-17] MEDS ORDERED: LACTTAB8 PO (12:21)
[2017-01-17] MEDS ORDERED: DOXY100C PO (12:21)
[2017-01-17] MEDS ORDERED: CEPH750C PO (12:21)
--- NOTE | 2017-01-17 12:22 | HHI.DCPOC ---
Discharge Care Plan Diagnosis: (1) Sepsis (2) HTN (hypertension) (3) HANNAH (acute kidney injury) (4) Cellulitis of right lower extremity (5) Elevated bilirubin Goals to Promote Your Health * To prevent worsening of your condition and complications * To maintain your health at the optimal level Directions to Meet Your Goals Take your medications as prescribed Follow your dietary instruction Follow activity as directed Keep your appointments as scheduled Take your immunizations and boosters as scheduled If your symptoms worsen call your PCP, if no PCP go to Urgent Care Center or Emergency Room Smoking is Dangerous to Your Health. Avoid second hand smoke Call the 24-hour hour crisis hotline for domestic abuse at Christopher Ervin MD Jan 17, 2017 12:22
--- NOTE | 2017-01-17 15:21 | HHI.DS ---
Discharge Summary Admission Date Jan 15, 2017 at 10:10 Discharge Date: Jan 17, 2017 Admitting Diagnosis Sepsis (Poss PNA) (1) Sepsis ICD Code: A41.9 Diagnosis: Principal (2) Cellulitis of right lower extremity ICD Code: L03.115 Diagnosis: Principal (3) Hypothyroidism ICD Code: E03.9 Diagnosis: Secondary (4) HTN (hypertension) ICD Code: I10 Diagnosis: Secondary (5) HANNAH (acute kidney injury) ICD Code: N17.9 Diagnosis: Principal (6) Elevated lactic acid level ICD Code: R79.89 Diagnosis: Principal (7) Elevated bilirubin ICD Code: R17 Diagnosis: Principal (8) Gilbert syndrome ICD Code: E80.4 Diagnosis: Principal Procedures none Brief History - From Admission SSN 81-year-old female with past medical history of hypertension, hypothyroidism and arthritis who presents to [facility] complaining of not feeling well. The patient states that today she will Feel cold cut up from the bed and tried to cover herself with extra clothes and blankets however she then started shaking and having chills. The patient states that she was waiting for her granddaughter to pick her up who is a nurse for the hospital. The patient otherwise denies any cough denies any fevers, denies any chest pain , denies dysuria. She states that approximately 2 days ago she bumped her right leg on the corner of car door sustaining a small injury, however denies right leg pain. The patient states that she had some nausea and vomiting 1 when she got to the hospital. At the moment of interview the patient is asymptomatic, denies chest pain short of breath, cough. CBC/BMP: 01/17/17 0623 01/17/17 0623 Significant Findings Laboratory Tests Test 01/15/17 01/15/17 01/16/17 01/16/17 07:45 07:48 06:34 11:22 Urine Occult Blood MOD (NEG) Urine Urobilinogen 4.0 MG/DL (LESS THAN 2.0) Urine RBC 10 /hpf (0-3) Urine Mucus FEW /lpf (OCC) White Blood Count 13.0 TH/MM3 12.1 TH/MM3 (4.0-11.0) (4.0-11.0) Neutrophils (%) (Auto) 85.6 % 80.3 % (16.0-70.0) (16.0-70.0) Lymphocytes (%) (Auto) 8.7 % (9.0-44.0) Neutrophils # (Auto) 11.2 TH/MM3 9.7 TH/MM3 (1.8-7.7) (1.8-7.7) Blood Urea Nitrogen 26 MG/DL (7-18) 22 MG/DL (7-18) Creatinine 1.11 MG/DL 1.13 MG/DL (0.50-1.00) (0.50-1.00) Estimat Glomerular Filtration 47 ML/MIN (>89) 46 ML/MIN (>89) Rate Random Glucose 112 MG/DL (74-106) Lactic Acid Level 2.3 mmol/L (0.4-2.0) Total Bilirubin 2.0 MG/DL 1.9 MG/DL 1.4 MG/DL (0.2-1.0) (0.2-1.0) (0.2-1.0) Aspartate Amino Transf 42 U/L (15-37) (AST/SGOT) Troponin I LESS THAN 0.02 NG/ML (0.02-0.05) Platelet Count 143 TH/MM3 (150-450) Calcium Level 8.4 MG/DL (8.5-10.1) Total Protein 5.7 GM/DL (6.4-8.2) Albumin 2.9 GM/DL (3.4-5.0) Direct Bilirubin 0.3 MG/DL (0.0-0.2) Indirect Bilirubin 1.1 MG/DL (0.0-0.8) Test 01/17/17 06:23 Red Blood Count 3.69 MIL/MM3 (4.00-5.30) Hematocrit 33.7 % (35.0-46.0) Platelet Count 138 TH/MM3 (150-450) Monocytes (%) (Auto) 11.3 % (0.0-8.0) Estimat Glomerular Filtration 57 ML/MIN (>89) Rate Calcium Level 8.4 MG/DL (8.5-10.1) Total Protein 5.5 GM/DL (6.4-8.2) Albumin 2.7 GM/DL (3.4-5.0) Imaging Last Impressions Lower Extremity Ultrasound 01/16/17 0000 Signed Impressions: Service Date/Time: Monday, January 16, 2017 14:31 - CONCLUSION: No evidence of DVT. Jesús Constantino MD Abdomen Ultrasound 01/16/17 0000 Signed Impressions: Service Date/Time: Monday, January 16, 2017 17:26 - CONCLUSION: 1. Status post cholecystectomy. No definite biliary tract obstruction 2. Bilateral benign-appearing renal cysts. Jesús Constantino MD Chest X-Ray 01/15/17 0721 Signed Impressions: Service Date/Time: Sunday, January 15, 2017 07:30 - CONCLUSION: No acute cardiopulmonary disease identified. Venancio Tate MD PE at Discharge GENERAL: This is a well-nourished, well-developed patient, in no apparent distress. SKIN: No rashes, ecchymoses or lesions. Cool and dry. HEAD: Atraumatic. Normocephalic. No temporal or scalp tenderness. EYES: Pupils equal round and reactive. Extraocular motions intact. No scleral icterus. No injection or drainage. ENT: Nose without bleeding, purulent drainage or septal hematoma. Throat without erythema, tonsillar hypertrophy or exudate. Uvula midline. Airway patent. NECK: Trachea midline. No JVD or lymphadenopathy. Supple, nontender, no meningeal signs. CARDIOVASCULAR: Regular rate and rhythm without murmurs, gallops, or rubs. RESPIRATORY: Clear to auscultation. Breath sounds equal bilaterally. No wheezes , rales, or rhonchi. GASTROINTESTINAL: Abdomen soft, non-tender, nondistended. No hepato-splenomegaly , or palpable masses. No guarding. MUSCULOSKELETAL: Extremities without clubbing, cyanosis, or edema. No joint tenderness, effusion. . No calf tenderness. Negative Homans sign bilaterally. Right lower extremity shows a skin tear which seems to be healing with surrounding erythema and warmth. Also Right lower extremity seems to be swollen in comparison to the right extremity NEUROLOGICAL: Awake and alert. Cranial nerves II through XII intact. Motor and sensory grossly within normal limits. Five out of 5 muscle strength in all muscle groups. Normal speech. Hospital Course (1) Sepsis Patient was admitted to the medical floor. Treated with IV antibiotics, IV fluids Blood cultures negative. (2) Cellulitis of right lower extremity As above. Lower extremity Doppler negative. Cellulitis seems to be improving, as erythema has improved. (3) Hypothyroidism Continue levothyroxine. Check TSH. (4) HTN (hypertension) I will hold lisinopril and hydrochlorothiazide given acute kidney injury and decreased GFR. We'll place on clonidine as needed. 4/8 BP stable. Continue to hold lisinopril and hydrochlorothiazide. (5) HANNAH (acute kidney injury) Likely prerenal azotemia from sepsis and dehydration. Resolved after IV fluids administration. Renal us as described above. (6) Elevated lactic acid level Due to sepsis secondary to cellulitis. Lactic acid on admission 2.3, down to 0.9 after IV fluid administration. (7) Elevated bilirubin Slated elevation of bilirubin. Total bilirubin 2.0, down to 1.9, down to 1.4. Direct bilirubin 0.3, indirect bilirubin 1.1. Likely secondary to Gilbert's syndrome since the patient states that her bilirubin gets elevated under stress. Abdominal us as above. Pt Condition on Discharge: Stable Discharge Disposition: Discharge Home Discharge Time: <= 30 minutes Discharge Instructions DIET: Follow Instructions for: As Tolerated, No Restrictions Activities you can perform: Regular-No Restrictions Activities to Avoid: Strenuous Activity Follow up Referrals: PCP Follow-up - 1 Week New Medications: Cephalexin (Cephalexin) 750 Mg Cap 750 MG PO Q8HR Infection #30 Ref 0 CAP Doxycycline Hyclate (Doxycycline Hyclate) 100 Mg Cap 100 MG PO BID Infection #20 Ref 0 CAP Lactobacillus Acidophilus (Lactobacillus Acidophilus) 1 Tab Tab 1 TAB PO TIDAC Nutritional Supplement #30 Ref 0 TAB Continued Medications: Aspirin (Aspirin) 81 Mg Chew 81 MG CHEW DAILY Ref 0 TAB Cholecalciferol (D 1000) 1,000 Unit Chew 1000 PO DAILY Hydrochlorothiazide (Hydrochlorothiazide) Unknown Strength Cap Unknown Dose PO DAILY #30 Ref 0 CAP Levothyroxine (Synthroid) 100 Mcg Tab 100 MCG PO DAILY Thyroid #30 Ref 0 TAB Multiple Vitamins W/ Minerals (Multivitamin Adults) 1 Tab 1 TAB PO DAILY Nutritional Supplement Ref 0 TAB [place] 3 Fatty Fcpij-Tkcbqz-Ghnlhcnbnp ([facility]) 250-2.5-0.5 Mg Cap 1 CAP PO DAILY Nutritional Supplement Ref 0 CAP Mathis Nicolas,Christopher MD Jan 17, 2017 15:21
[2017-01-17 15:56] VITALS: BP 108/67; PULSE 74; RESP 18; TEMP 98.2; O2SAT 97
[2017-01-19] MEDS ORDERED: PHARMACY ORDERED LAB ONE (11:45)
== END 2017-01-17 16:50 | disposition home or self-care (01) | DRG 872 ==
LOC: NEPC 06:49 → NEDA 10:10 → N04A 13:40
PROVIDERS: ADMIT Hospitalist; ATTEND Hospitalist
DX: A41.9 Sepsis, unspecified organism (principal); N17.9 Acute kidney failure, unspecified; E86.0 Dehydration; L03.115 Cellulitis of right lower limb; E03.9 Hypothyroidism, unspecified; E80.4 Gilbert syndrome; I10 Essential (primary) hypertension; Z82.49 Family history of ischemic heart disease and other diseases of the circulatory system; Z90.710 Acquired absence of both cervix and uterus
CPT/HCPCS: 71010; 71020; 76700; 80048; 80053; 80074; 80076; 81001; 82247; 82248; 82550; 82552; 83605; 83735; 84100; 84484; 85025; 87040; 87804; 93005; 93971; 96361; 96365; 96375; J0690; J0696; J1644; J2405; J3370; J7030; J7050; P9612

== ENCOUNTER → 2017-02-16 | Outpatient (CLI) | payer MEDICARE, OTHER ==
[~2017-02-16] MED LIST changes: -ALL220TA PO; +ASPI81CH CHEW; -ASPI81TA82 PO; +CEPH750C PO; +D 10CHW PO; -D31000CA PO; -DICL75 PO; +DOXY100C PO; -FISH100020 PO; -HYDR-3533 PO; -HYDR12.56 PO; +HYDR12.57 PO; +LACTTAB8 PO; -LISI-363 PO; +MULT1TAB84 PO; -OCUVTAB4 PO; +OMEGCAP29 PO; -PANT20 PO
[2017-02-16 10:57] LABS: HEMATOCRIT 43.1 % (35.0-46.0); MEAN CELL VOLUME 93.4 FL (80.0-100.0); MEAN CORPUSCULAR HEMOGLOBIN 30.4 PG (27.0-34.0); MEAN CORPUSCULAR HGB CONC 32.5 % (32.0-36.0); PLATELET COUNT 176 TH/MM3 (150-450); RED BLOOD COUNT 4.62 MIL/MM3 (4.00-5.30); RED CELL DISTRIBUTION WIDTH 14.7 % (11.6-17.2); REVIEW FLAG FINAL; WHITE BLOOD COUNT 4.6 TH/MM3 (4.0-11.0)
[2017-02-16 11:32] LABS: ALT (GPT) 17 U/L (10-53); ANION GAP 5 MEQ/L (5-15); AST (GOT) 20 U/L (15-37); BICARBONATE 30.7 MEQ/L (21.0-32.0); BLOOD UREA NITROGEN 25 MG/DL (7-18); CHLORIDE 106 MEQ/L (98-107); GLOMERULAR FILTRATION RATE 50 ML/MIN (>89); GLUCOSE,FASTING 82 MG/DL (74-99); POTASSIUM 3.6 MEQ/L (3.5-5.1); SODIUM (NA) 142 MEQ/L (136-145)
[2017-02-16 11:40] LABS: ALKALINE PHOSPHATASE 62 U/L (45-117); FREE T4 1.39 NG/DL (0.76-1.46); HDL CHOLESTEROL 55.9 MG/DL (40.0-60.0); LDL CHOLESTEROL 95 MG/DL (0-99); LDL CHOLESTEROL DIRECT 100 MG/DL (0-99); TOTAL BILIRUBIN ADULT 2.1 MG/DL (0.2-1.0)
== END ==
LOC: PLAB 08:08
PROVIDERS: ATTEND Internal Medicine
DX: I10 Essential (primary) hypertension (principal); E03.9 Hypothyroidism, unspecified; E78.5 Hyperlipidemia, unspecified
CPT/HCPCS: 36415; 80053; 80061; 83721; 84439; 84443; 85027

== ENCOUNTER → 2017-08-19 | Outpatient (CLI) | payer MEDICARE ==
[~2017-08-19] MED LIST changes: +ASPI-516 CHEW; -ASPI81CH CHEW
[2017-08-19 13:44] LABS: HEMATOCRIT 43.5 % (35.0-46.0); MEAN CELL VOLUME 94.6 FL (80.0-100.0); MEAN CORPUSCULAR HEMOGLOBIN 32.2 PG (27.0-34.0); PLATELET COUNT 103 TH/MM3 (150-450); RED CELL DISTRIBUTION WIDTH 14.3 % (11.6-17.2); REVIEW FLAG FINAL; WHITE BLOOD COUNT 5.1 TH/MM3 (4.0-11.0)
[2017-08-19 14:00] LABS: ANION GAP 7 MEQ/L (5-15); AST (GOT) 20 U/L (15-37); BICARBONATE 30.3 MEQ/L (21.0-32.0); BLOOD UREA NITROGEN 27 MG/DL (7-18); CHLORIDE 105 MEQ/L (98-107); GLOMERULAR FILTRATION RATE 44 ML/MIN (>89); GLUCOSE,FASTING 88 MG/DL (74-99); POTASSIUM 5.2 MEQ/L (3.5-5.1); SODIUM (NA) 142 MEQ/L (136-145)
[2017-08-19 14:13] LABS: ALKALINE PHOSPHATASE 66 U/L (45-117); ALT (GPT) 21 U/L (10-53); FREE T4 1.29 NG/DL (0.76-1.46); HDL CHOLESTEROL 54.2 MG/DL (40.0-60.0); LDL CHOLESTEROL 80 MG/DL (0-99); LDL CHOLESTEROL DIRECT 98 MG/DL (0-99); TOTAL BILIRUBIN ADULT 1.5 MG/DL (0.2-1.0)
== END ==
LOC: PLAB 10:14
PROVIDERS: ATTEND Internal Medicine
DX: I10 Essential (primary) hypertension (principal); E03.9 Hypothyroidism, unspecified; E78.5 Hyperlipidemia, unspecified
CPT/HCPCS: 36415; 80053; 80061; 83721; 84439; 84443; 85027

== ENCOUNTER 2018-01-22 16:17 | Emergency (ER) | payer MEDICARE ==
[~2018-01-22] VITALS: Ht 162.6 cm; Wt 83.3 kg
[2018-01-22 16:24] VITALS: BP 155/88; PULSE 61; RESP 18; TEMP 98.6; O2SAT 97
--- NOTE | 2018-01-22 17:06 | PD ---
HPI Chief Complaint: Oral / Dental Pain or Problem Time Seen by Provider: 16:44 Travel History International Travel<30 days: No Contact w/Intl Traveler<30days: No Traveled to known affect area: No History of Present Illness HPI 82-year-old female here with a complaint of "growth on tongue". She reports 3 days ago while using her finger to feel around her mouth she palpated an irregularity to the right side of her tongue. Upon examination in the mirror she noticed what looked like a growth. The area is nontender. Lesion has been there for an unknown period of time. She has no difficulty swallowing. No recent unexplained weight loss. No history of oral/neck cancers. Non-smoker. No aggravating or alleviating factors. Symptoms very mild. PFSH Past Medical History Autoimmune Disease: Yes (POLUPS) Anxiety: No Depression: No Cancer: Yes (SKIN) Chemotherapy: No Diminished Hearing: No Genitourinary: No Hypertension: Yes Musculoskeletal: No Neurologic: No Psychiatric: No Reproductive: No Respiratory: Yes (NODULES ON LUNGS) Immunizations Current: Yes Radiation Therapy: No Thyroid Disease: Yes ?: Not Menopausal: Yes Past Surgical History Cholecystectomy: Yes Hysterectomy: Yes (full) Social History Alcohol Use: No Tobacco Use: No Substance Use: No Allergies-Medications (Allergen,Severity, Reaction): Coded Allergies: shellfish derived (Unverified Allergy, Severe, respirtory distress, ) penicillin G (Unverified Adverse Reaction, Mild, nausea, 05/25/17) Reported Meds & Prescriptions Reported Meds & Active Scripts Active Lactobacillus Acidophilus 1 Tab Tab 1 Tab PO TIDAC Doxycycline Hyclate 100 Mg Cap 100 Mg PO BID Cephalexin 750 Mg Cap 750 Mg PO Q8HR Reported D 1000 (Cholecalciferol) 1,000 Unit Chew 1,000 PO DAILY Multivitamin Adults (Multiple Vitamins W/ Minerals) 1 Tab 1 Tab PO DAILY [facility] ([place] 3 Fatty Ptdau-Xxshbu-Vaqnzknyvp) 250-2.5-0.5 Mg Cap 1 Cap PO DAILY Synthroid (Levothyroxine Sodium) 100 Mcg Tab 100 Mcg PO DAILY Hydrochlorothiazide Unknown Strength Cap Unknown Dose PO DAILY Aspirin 81 Mg Chew 81 Mg CHEW DAILY Review of Systems Except as stated in HPI: all other systems reviewed are Neg General / Constitutional: No: Fever HENT: No: Headaches Cardiovascular: No: Chest Pain or Discomfort Gastrointestinal: No: Abdominal Pain Genitourinary: No: Dysuria Physical Exam Narrative GENERAL: Alert, well-nourished, well-appearing 82-year-old female SKIN: Warm and dry. HEAD: Normocephalic. EYES: No scleral icterus. No injection or drainage. MOUTH: 4mm round smooth raised fleshy lesion to the right side of the tongue. No surrounding erythema. No swelling to the floor the mouth. Uvula is midline. Airways patent. Normal phonation. NECK: Supple, trachea midline. No neck mass or lymphadenopathy. CARDIOVASCULAR: Regular rate and rhythm RESPIRATORY: Breath sounds equal bilaterally. No accessory muscle use. GASTROINTESTINAL: Abdomen soft, non-tender, nondistended. MUSCULOSKELETAL: No cyanosis, or edema. Data Data Last Documented VS Vital Signs Date Time Temp Pulse Resp B/P (MAP) Pulse Ox O2 Delivery O2 Flow Rate FiO2 01/22/18 16:24 98.6 61 18 155/88 (110) 97 MDM Medical Decision Making Medical Screen Exam Complete: Yes Emergency Medical Condition: Yes Differential Diagnosis Benign growth of tongue, neoplasm, aphthous ulcer Narrative Course 82-year-old female here with small to the right side of the tongue. Airways patent. No neck mass or adenopathy. Encouraged to follow-up with her dentist or oral surgeon to have the area removed for biopsy this week. The importance of follow-up was discussed at length. Patient verbalized understanding and agrees to call her dentist on Wednesday. Diagnosis Primary Impression: Tongue lesion Referrals: Eulalio Romero DDS [place] [facility] Oral Maxillofacial Surgeon Additional Instructions: Called to schedule a follow-up appointment this week with oral surgeon for biopsy of the tongue lesion. Disposition: 01 DISCHARGE HOME Condition: Stable Luci Chacko Annabel [facility] UPHOL[employer]ER Jan 22, 2018 17:06
== END 2018-01-22 17:42 | disposition home or self-care (01) ==
LOC: PHEFT 16:17
DX: K14.9 Disease of tongue, unspecified (principal); I10 Essential (primary) hypertension; Z88.0 Allergy status to penicillin; Z85.828 Personal history of other malignant neoplasm of skin
CPT/HCPCS: 99282

== ENCOUNTER → 2018-02-15 | Outpatient (CLI) | payer MEDICARE ==
[2018-02-15 13:45] LABS: HEMATOCRIT 44.1 % (35.0-46.0); HEMOGLOBIN 14.7 GM/DL (11.6-15.3); MEAN CELL VOLUME 94.1 FL (80.0-100.0); MEAN CORPUSCULAR HEMOGLOBIN 31.4 PG (27.0-34.0); MEAN CORPUSCULAR HGB CONC 33.4 % (32.0-36.0); MEAN PLATELET VOLUME 9.3 FL (7.0-11.0); PLATELET COUNT 152 TH/MM3 (150-450); RED BLOOD COUNT 4.69 MIL/MM3 (4.00-5.30); RED CELL DISTRIBUTION WIDTH 14.2 % (11.6-17.2); WHITE BLOOD COUNT 4.8 TH/MM3 (4.0-11.0)
[2018-02-15 13:53] LABS: ALBUMIN 3.5 GM/DL (3.4-5.0); AST (GOT) 20 U/L (15-37); BICARBONATE 29.3 MEQ/L (21.0-32.0); BLOOD UREA NITROGEN 31 MG/DL (7-18); CALCIUM 8.9 MG/DL (8.5-10.1); CHLORIDE 108 MEQ/L (98-107); CHOLESTEROL 167 MG/DL (120-200); CREATININE 1.11 MG/DL (0.50-1.00); GLOMERULAR FILTRATION RATE 47 ML/MIN (>89); GLUCOSE,FASTING 86 MG/DL (74-99); SODIUM (NA) 142 MEQ/L (136-145)
[2018-02-15 13:54] LABS: BACTERIA, URINE RARE /hpf; BILIRUBIN, URINE NEG (NEG); BLOOD, URINE TRACE (NEG); GLUCOSE,URINE NEG (NEG); KETONE, URINE NEG (NEG); NITRITE,URINE NEG (NEG); PH, URINE 6.5 (5.0-8.5); SQUAMOUS EPITHELIAL CELL URINE 16 /hpf (0-5); TRANSITIONAL EPI CELLS, URINE <1 /hpf; URINE COLOR YELLOW (YELLW/STRAW); URINE LEUKOCYTE ESTERASE LARGE (NEG); WHITE BLOOD CELL CLUMPS RARE
[2018-02-15 14:13] LABS: ALKALINE PHOSPHATASE 61 U/L (45-117); ALT (GPT) 17 U/L (10-53); CHOLESTEROL/ HDL RATIO 3.02 RATIO; FREE T4 1.07 NG/DL (0.76-1.46); HDL CHOLESTEROL 55.2 MG/DL (40.0-60.0); LDL CHOLESTEROL 93 MG/DL (0-99); LDL CHOLESTEROL DIRECT 103 MG/DL (0-99); TOTAL BILIRUBIN ADULT 1.8 MG/DL (0.2-1.0); TOTAL PROTEIN 6.4 GM/DL (6.4-8.2); TRIGLYCERIDES 92 MG/DL (42-150)
== END ==
LOC: PLAB 09:06
PROVIDERS: ATTEND Internal Medicine
DX: I10 Essential (primary) hypertension (principal); E03.9 Hypothyroidism, unspecified
CPT/HCPCS: 36415; 80053; 80061; 81001; 83721; 84439; 84443; 85027